=== PATIENT | male | born 1970 | race Caucasian/White ===

== ENCOUNTER → 2020-05-28 | Day surgery (SDC) | payer OTHER ==
[~2020-05-28] MED LIST: ASPIRIN325 MG PO; PERCOCET 5-3251 EACH PO
== END | disposition home or self-care (01) ==
LOC: FAS 08:11
DX: K57.30 Diverticulosis of large intestine without perforation or abscess without bleeding (principal); K31.89 Other diseases of stomach and duodenum; K21.9 Gastro-esophageal reflux disease without esophagitis; K44.9 Diaphragmatic hernia without obstruction or gangrene; K64.9 Unspecified hemorrhoids; I44.30 Unspecified atrioventricular block; M19.90 Unspecified osteoarthritis, unspecified site; I49.9 Cardiac arrhythmia, unspecified; Z91.040 Latex allergy status
CPT/HCPCS: J2250; J2704; J7120